=== PATIENT | female | born 1960 | race Two or more races ===

== ENCOUNTER 2020-07-17 08:53 | Outpatient (AMBR) | payer MEDICARE, MEDICAID, SELFPAY ==
--- NOTE | 2020-07-02 09:14 | PT.OIERPT ---
PT OP Initial Eval Patient Information Visit Reasons: RIGHT SHOULDER PAIN Medical Diagnosis: R shoulder pain Treatment Dx #1: same Start of Care: 07/02/20 Date of Onset: 3 weeks ago Initial Assessment Subjective Pt is 60 yr old female here with her sister with whom she lives for R shoulder pain insidious onset x3 weeks. Pt reports pain with dressing, reaching back behind to fasten bra and so her sister helps her. Pt has difficulty lifting things due to pain. PMH: R knee sx meniscus, hypothyroidism, allegies Imaging: with provider Pt goal: to get rid of the shoulder pain so she can dress without pain Objective R shoulder AROM: Strength: FF: 120 deg with pain 3/5 Abd: 100 deg 3/5 Erot: 78 deg 3/5 HBB: R flank with pain Special tests: Paula Mcfadden: postiive Drop arm: negative Painful arc: positive Burgess's: negative Full can: positive TTP: R long head of biceps moderate Assessment Pt presentation consistent with R shoulder impingement with positive impingement testing and shoulder weakness. Pt has pain with resistance into all shoulder planes of motion and TTP over long head of biceps tendon. Pt requires skilled therapy in order to decrease pain and improve strength and ROM and has fair rehab potential. Short Term and Senior Care Goals 1. Ind with HEP 2. Improved AROM of R shoulder to 135 deg FF, 125 deg abduction and 90 deg ER, Improved HBB ROM to L3 3. Improved strength to 4-/5 grossly 4. Pt will reach OH x10 with <=4/10 pain Treatment Plan 1. Manual therapy 2. Therex 3. Modalities as indicated, moist heat pack, ice, electrical stimulation, Frequency and Duration 2x a week for 8 weeks Certification Dates: 07/02/20 to 10/02/20 Office Procedures PT Procedures PT Date of Service: 07/02/20 OP PT Eval Mod Complex 30 minutes: Yes
--- NOTE | 2020-07-04 14:23 | PTNOTE_ITS ---
PT Outpatient Daily Note Date of Service: 07/04/20 OP Daily Note Visit Reasons: RIGHT SHOULDER PAIN Outpatient Physical Therapy Treatment Date: 07/04/20 Subjective: Same as time of evaluation. She points to the R long head biceps as site of pain Objective: See F/S for therex MT: STM long hd biceps with graston x10' Assessment: Pt has pain at first resistance into flexion over the long head of biceps and mild TTP with manual therapy. Plan: Continue per POC Length of Time (minutes) of Treatment: 30 Minutes Office Procedures PT Procedures PT Date of Service: 07/02/20 OP PT Eval Mod Complex 30 minutes: Yes PT Procedures PT Date of Service: 07/04/20 Therapeutic Exercise 15 minutes: Yes Manual Mold Yarn Supervisor 15 minutes: Yes
--- NOTE | 2020-07-08 21:17 | PT.ODAYNRPT ---
PT Outpatient Daily Note Date of Service: 07/08/20 OP Daily Note Visit Reasons: RIGHT SHOULDER PAIN Outpatient Physical Therapy Treatment Date: 07/08/20 Subjective: She points to the R long head biceps as site of pain Objective: See F/S for therex Assessment: Pt has pain at first resistance into flexion over the long head of biceps with impingement postitions Plan: Continue per POC Length of Time (minutes) of Treatment: 30 Minutes Office Procedures PT Procedures PT Date of Service: 07/08/20 Therapeutic Exercise 30 minutes: Yes PT Procedures PT Date of Service: 07/02/20 OP PT Eval Mod Complex 30 minutes: Yes PT Procedures PT Date of Service: 07/04/20 Therapeutic Exercise 15 minutes: Yes Manual Professor Of Environmental Science 15 minutes: Yes
--- NOTE | 2020-07-10 19:35 | PT.ODAYNRPT ---
PT Outpatient Daily Note Date of Service: 07/10/20 OP Daily Note Visit Reasons: RIGHT SHOULDER PAIN Outpatient Physical Therapy Treatment Date: 07/10/20 Subjective: She points to the R long head biceps as site of pain Objective: See F/S for therex Assessment: Pt has pain at first resistance into flexion over the long head of biceps with impingement postitions Plan: Continue per POC Length of Time (minutes) of Treatment: 30 Minutes Office Procedures PT Procedures PT Date of Service: 07/08/20 Therapeutic Exercise 30 minutes: Yes PT Procedures PT Date of Service: 07/10/20 Therapeutic Exercise 30 minutes: Yes PT Procedures PT Date of Service: 07/02/20 OP PT Eval Mod Complex 30 minutes: Yes PT Procedures PT Date of Service: 07/04/20 Therapeutic Exercise 15 minutes: Yes Manual Aluminum Pourer 15 minutes: Yes
--- NOTE | 2020-07-15 19:21 | PT.ODAYNRPT ---
PT Outpatient Daily Note Date of Service: 07/15/20 OP Daily Note Visit Reasons: RIGHT SHOULDER PAIN Outpatient Physical Therapy Treatment Date: 07/15/20 Subjective: She points to the R long head biceps as site of pain Objective: See F/S for therex Assessment: Pt has less pain at first resistance into flexion over the long head of biceps with impingement positions Plan: Continue per POC Length of Time (minutes) of Treatment: 30 Minutes Office Procedures PT Procedures PT Date of Service: 07/08/20 Therapeutic Exercise 30 minutes: Yes PT Procedures PT Date of Service: 07/10/20 Therapeutic Exercise 30 minutes: Yes PT Procedures PT Date of Service: 07/15/20 Therapeutic Exercise 30 minutes: Yes PT Procedures PT Date of Service: 07/02/20 OP PT Eval Mod Complex 30 minutes: Yes PT Procedures PT Date of Service: 07/04/20 Therapeutic Exercise 15 minutes: Yes Manual Community Mental Health Social Worker 15 minutes: Yes
--- NOTE | 2020-07-17 19:28 | PT.ODAYNRPT ---
PT Outpatient Daily Note Date of Service: 07/17/20 OP Daily Note Visit Reasons: RIGHT SHOULDER PAIN Outpatient Physical Therapy Treatment Date: 07/17/20 Subjective: She points to the R posterior deltoid as site of pain Objective: See F/S for therex MT: STM posterior deltoid x7' Assessment: Pt has less pain at first resistance into flexion over the long head of biceps with impingement positions . Moderate TTP of posterior deltoid. Plan: Continue per POC Length of Time (minutes) of Treatment: 30 Minutes Office Procedures PT Procedures PT Date of Service: 07/08/20 Therapeutic Exercise 30 minutes: Yes PT Procedures PT Date of Service: 07/10/20 Therapeutic Exercise 30 minutes: Yes PT Procedures PT Date of Service: 07/15/20 Therapeutic Exercise 30 minutes: Yes PT Procedures PT Date of Service: 07/17/20 Therapeutic Exercise 30 minutes: Yes PT Procedures PT Date of Service: 07/02/20 OP PT Eval Mod Complex 30 minutes: Yes PT Procedures PT Date of Service: 07/04/20 Therapeutic Exercise 15 minutes: Yes Manual Primary Special Educator 15 minutes: Yes
== END 2020-07-22 23:59 | disposition home or self-care (01) ==
PROVIDERS: PCP Physician Assistant; Referring Provider Physician Assistant; Visit Provider Physician Assistant
DX: M25.511 Pain in right shoulder (principal)
CPT/HCPCS: 97110; 97140; 97162

== ENCOUNTER 2020-08-01 09:53 | Outpatient (AMBR) | payer MEDICARE, MEDICAID, SELFPAY ==
--- NOTE | 2020-07-25 10:09 | PT.ODAYNRPT ---
PT Outpatient Daily Note Date of Service: 07/23/20 OP Daily Note Visit Reasons: RIGHT SHOULDER PAIN Outpatient Physical Therapy Treatment Date: 07/23/20 Subjective: The shoulder has been less painful lately with reaching up, thinks therapy is helping. Objective: See f/S for therex Assessment: Good response to AAROM therex to reduce shoulder pain and improve ROM to about 130 deg FF. Plan: Continue per POC Length of Time (minutes) of Treatment: 30 Minutes Office Procedures PT Procedures PT Date of Service: 07/23/20 Therapeutic Exercise 30 minutes: Yes
--- NOTE | 2020-07-25 10:39 | PT.ODAYNRPT ---
PT Outpatient Daily Note Date of Service: 07/25/20 OP Daily Note Visit Reasons: RIGHT SHOULDER PAIN Outpatient Physical Therapy Treatment Date: 07/25/20 Subjective: The shoulder has been less painful lately with reaching up, thinks therapy is helping. But she points to the R bicep as site of pain when she lifts shoulder. Objective: See f/S for therex MT: STM R long head biceps tendon x7' with Graston Assessment: Pt can actively reach up Plan: Continue per POC Office Procedures PT Procedures PT Date of Service: 07/23/20 Therapeutic Exercise 30 minutes: Yes
--- NOTE | 2020-07-25 12:56 | PTNOTE_ITS ---
PT OP Progress/Discharge Note Date of Service: 07/25/20 Progress Note/DC Note Progress Note/Discharge Note: Progress Note Patient Information Visit Reasons: RIGHT SHOULDER PAIN Service Continue Service or Discharge: Continue Service Discharge Date: 07/25/20 Status Subjective: The shoulder has been less painful lately with reaching up, thinks therapy is helping. But she points to the R bicep as site of pain when she lifts shoulder. Objective: See f/S for therex MT: STM R long head biceps tendon x7' with Graston R shoulder AROM: Strength: FF: 140 deg 3+/5 Abd: 120 deg with pain over long head of biceps 3+/5 Erot: 70 deg 3+/5 Assessment: Pt has attended the evaluation and 8 Rx visits with good response to AAROM therex to reduce shoulder pain and improve ROM to about 140 deg FF. She h as pain over the R biceps with FF consistent with impingement. Pt would benefit from continued therapy in order to decrease pain with OH reaching. Plan: Continue per POC Office Procedures PT Procedures PT Date of Service: 07/23/20 Therapeutic Exercise 30 minutes: Yes PT Procedures PT Date of Service: 07/25/20 Therapeutic Exercise 30 minutes: Yes
--- NOTE | 2020-07-30 13:42 | PT.ODAYNRPT ---
PT Outpatient Daily Note Date of Service: 07/30/20 OP Daily Note Visit Reasons: RIGHT SHOULDER PAIN Outpatient Physical Therapy Treatment Date: 07/30/20 Subjective: The shoulder has been less painful lately with reaching up, thinks therapy is helping. But she points to the R bicep as site of pain when she lifts shoulder. Objective: See f/S for therex MT: STM R long head biceps tendon x7' with Graston Assessment: She has pain over the R biceps with FF consistent with impingement. Pt would benefit from continued therapy in order to decrease pain with OH reaching. Plan: Continue per POC Length of Time (minutes) of Treatment: 30 Minutes Office Procedures PT Procedures PT Date of Service: 07/23/20 Therapeutic Exercise 30 minutes: Yes PT Procedures PT Date of Service: 07/25/20 Therapeutic Exercise 30 minutes: Yes PT Procedures PT Date of Service: 07/30/20 Therapeutic Exercise 30 minutes: Yes
--- NOTE | 2020-08-01 13:11 | PT.ODAYNRPT ---
PT Outpatient Daily Note Date of Service: 08/01/20 OP Daily Note Visit Reasons: RIGHT SHOULDER PAIN Outpatient Physical Therapy Treatment Date: 08/01/20 Subjective: The shoulder has been less painful lately with reaching up, thinks therapy is helping. But she points to the R bicep as site of pain when she lifts shoulder. Objective: See f/S for therex MT: STM R long head biceps tendon x7' with Graston Assessment: She has pain over the R biceps with FF consistent with impingement. Pt would benefit from continued therapy in order to decrease pain with OH reaching. Plan: Continue per POC Length of Time (minutes) of Treatment: 30 Minutes Office Procedures PT Procedures PT Date of Service: 07/23/20 Therapeutic Exercise 30 minutes: Yes PT Procedures PT Date of Service: 07/25/20 Therapeutic Exercise 30 minutes: Yes PT Procedures PT Date of Service: 07/30/20 Therapeutic Exercise 30 minutes: Yes PT Procedures PT Date of Service: 08/01/20 Therapeutic Exercise 30 minutes: Yes
== END 2020-08-21 23:59 | disposition home or self-care (01) ==
PROVIDERS: PCP Physician Assistant; Referring Provider Physician Assistant; Visit Provider Physician Assistant
DX: M25.511 Pain in right shoulder (principal)
CPT/HCPCS: 97110

== ENCOUNTER → 2024-02-07 | Outpatient (CLI) | payer MEDICARE, MEDICAID, SELFPAY ==
[2024-02-07 10:51] LABS: Vitamin D 25 Hydroxy Total 40.3 ng/mL (7.3-40.2)
[2024-02-07 11:10] LABS: Alanine Aminotransferase 23 U/L (10-49); Albumin, Serum 4.6 gm/dL (3.4-4.8); Albumin/Globulin Ratio 2.2 (1.2-2.2); Alkaline Phosphatase 147 U/L (46-116); Anion Gap 10 (7-16); Aspartate Amino Transferase 19 U/L (0-34); BUN/Creatinine Ratio 14 Ratio (12-20); Bilirubin,Total 0.5 mg/dL (0.3-1.2); Blood Urea Nitrogen 15 mg/dL (9-23); Calcium 9.8 mg/dL (8.3-10.6); Calcium (Corrected) 9.8 mg/dL (8.5-10.1); Carbon Dioxide 26.7 mMol/L (20.0-31.0); Chloride 106 mMol/L (98-107); Creatinine (Component) 1.1 mg/dL (0.6-1.3); Globulin 2.1 gm/dL (2.3-3.5); Glucose 120 mg/dL (74-106); Osmolality,Calculated 286 (275-295); Potassium 4.2 mMol/L (3.4-5.1); Sodium 143 mMol/L (136-145); Total Protein 6.7 gm/dL (5.7-8.2); eGFR 56 See Note
== END | disposition home or self-care (01) ==
LOC: COPL 08:56
PROVIDERS: PCP Physician Assistant; Referring Provider Internal Medicine; Visit Provider Internal Medicine
DX: D80.1 Nonfamilial hypogammaglobulinemia (principal); E03.9 Hypothyroidism, unspecified; E21.3 Hyperparathyroidism, unspecified; E66.01 Morbid (severe) obesity due to excess calories; F79 Unspecified intellectual disabilities; F89 Unspecified disorder of psychological development; I49.9 Cardiac arrhythmia, unspecified; J30.9 Allergic rhinitis, unspecified; M81.0 Age-related osteoporosis without current pathological fracture; N32.81 Overactive bladder; Z68.41 Body mass index [BMI] 40.0-44.9, adult; Z78.0 Asymptomatic menopausal state; Z79.899 Other long term (current) drug therapy; Z13.820 Encounter for screening for osteoporosis
CPT/HCPCS: 36415; 80053; 82306

== ENCOUNTER 2024-02-09 09:20 | Day surgery (SDC) | payer MEDICARE, MEDICAID, SELFPAY ==
[2024-02-08 10:57] VITALS: BMI 45.3
[2024-02-09] VITALS (10 sets, daily range): BP systolic 115–152; BP diastolic 70–105; PULSE 79–112; RESP 12–21; TEMP 36.5–36.7; O2SAT 94–97; BMI 43.0
[2024-02-09] MEDS: DiphenhydrAMINE INJ 50 MG/ML VIAL 25 MG IV (11:08)
[2024-02-09] MEDS: fentaNYL CIT INJ 50 mCg/ML AMP 2ML (ASD USE ONLY) IV (11:10)
[2024-02-09] MEDS: MIDAZOLAM INJ 1 MG/ML VIAL 2 ML (ASD USE ONLY) 2 MG IV (11:15)
== END 2024-02-09 12:20 | disposition home or self-care (01) ==
PROVIDERS: PCP Physician Assistant; Referring Provider Physician Assistant; Visit Provider Specialist
PROC: 0DBE8ZX Excision of Large Intestine, Via Natural or Artificial Opening Endoscopic, Diagnostic (ICD-10-PCS; CPT 45380; principal; 2024-02-09 10:45)
DX: K63.5 Polyp of colon (principal); Z86.0101 Personal history of adenomatous and serrated colon polyps; D12.5 Benign neoplasm of sigmoid colon; K64.9 Unspecified hemorrhoids
CPT/HCPCS: 45385; J1200; J2250; J3010

== ENCOUNTER → 2024-02-15 | Outpatient (CLI) | payer MEDICARE, MEDICAID, SELFPAY ==
--- NOTE | 2024-02-15 09:38 | EKG_ITS ---
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
== END | disposition home or self-care (01) ==
PROVIDERS: PCP Physician Assistant; Referring Provider Student in an Organized Health Care Education/Training Program; Visit Provider Student in an Organized Health Care Education/Training Program
DX: Z01.818 Encounter for other preprocedural examination (principal); H25.811 Combined forms of age-related cataract, right eye
CPT/HCPCS: 93005

== ENCOUNTER → 2024-07-24 | Outpatient (CLI) | payer MEDICARE, MEDICAID, SELFPAY ==
[2024-07-24 10:22] LABS: Basophils % (Auto) 1 % (0-2.5); Eosinophils # (Auto) 0.2 Thou/mm3 (0.0-0.5); Eosinophils % (Auto) 5 % (0-10); Hematocrit 42.1 % (36.0-46.0); Hemoglobin 13.9 g/dL (12.0-16.0); Immature Granulocytes % (Auto) 0 % (0-0); Immature Granulocytes Auto 0.01 Thou/mm3 (0.00-0.00); Lymphocytes # (Auto) 1.3 Thou/mm3 (1.0-4.8); Lymphocytes % (Auto) 26 % (10-50); Mean Corpuscular Hemoglobin 29.2 pg (25.0-35.0); Mean Corpuscular Volume 88 fL (80-100); Monocytes # (Auto) 0.3 Thou/mm3 (0.0-0.8); Monocytes % (Auto) 7 % (0-12); Neutrophils # (Auto) 3.1 Thou/mm3 (1.8-7.7); Neutrophils % (Auto) 62 % (37-80); Nucleated Red Blood Cell % 0 /100 WBC (0); Platelet Count 176 Thou/mm3 (140-440); RDW Standard Deviation 41.8 fL (36.4-46.3); Red Blood Count 4.76 Miln/mm3 (4.00-5.20)
[2024-07-24 10:38] LABS: Alanine Aminotransferase 19 U/L (10-49); Albumin, Serum 4.4 gm/dL (3.4-4.8); Albumin/Globulin Ratio 2.1 (1.2-2.2); Alkaline Phosphatase 137 U/L (46-116); Anion Gap 12 (7-16); Aspartate Amino Transferase 26 U/L (0-34); BUN/Creatinine Ratio 18 Ratio (12-20); Bilirubin,Total 0.5 mg/dL (0.3-1.2); Blood Urea Nitrogen 16 mg/dL (9-23); Calcium 9.1 mg/dL (8.3-10.6); Calcium (Corrected) 9.1 mg/dL (8.5-10.1); Carbon Dioxide 24.2 mMol/L (20.0-31.0); Cardiac Risk Estimate 4.8 RATIO (3.7-5.6); Chloride 109 mMol/L (98-107); Cholesterol 163 mg/dL (132-200); Creatinine (Component) 0.9 mg/dL (0.6-1.3); Globulin 2.1 gm/dL (2.3-3.5); Glucose 119 mg/dL (74-106); HDL Cholesterol 34 mg/dL (40-60); LDL Cholesterol,Calculated 104 mg/dL (0-130); Osmolality,Calculated 290 (275-295); Potassium 4.2 mMol/L (3.4-5.1); Sodium 145 mMol/L (136-145); Thyroid Stimulating Hormone 3.98 uIU/mL (0.55-4.78); Total Protein 6.5 gm/dL (5.7-8.2); Triglycerides 126 mg/dL (30-150); eGFR > 60 See Note
[2024-07-24 11:07] LABS: Glucose Estimated Average 117 mg/dL (80-131); Hemoglobin A1C 5.7 % Hgb (4.8-6.0)
== END | disposition home or self-care (01) ==
LOC: COPL 08:57
PROVIDERS: PCP Physician Assistant; Referring Provider Physician Assistant; Visit Provider Physician Assistant
DX: Z00.00 Encounter for general adult medical examination without abnormal findings (principal); M81.0 Age-related osteoporosis without current pathological fracture; E03.9 Hypothyroidism, unspecified
CPT/HCPCS: 36415; 80053; 80061; 83036; 84443; 85025

== ENCOUNTER → 2024-08-22 | Outpatient (CLI) | payer MEDICARE, MEDICAID, SELFPAY ==
--- NOTE | 2024-08-22 11:15 | XR_ITS ---
Examination: Screening digital mammography, bilateral Computer aided detection 3-D breast Tomosynthesis, bilateral Date and time of exam: August 22, 2024 1054 hours Compared to mammograms dating to April 11, 2019 Indication: Screening Technique: Nonmagnified MLO, CC views of the breasts to been obtained, reconstructed from 3-D Tomosynthesis images. R2 computer aided detection program utilized for evaluation of suspicious masses and/or abnormal calcifications. 3-D Tomosynthesis images obtained. Findings: Scattered areas of fibroglandular density. Benign calcifications. 12 mm focal asymmetry upper outer left breast Impression: BI-RADS Category 0: Incomplete: Need additional imaging evaluation Recommend follow-up spot tomographic views of 12 mm focal asymmetry upper outer left breast as well as left breast sonography to complete the workup.
== END | disposition home or self-care (01) ==
PROVIDERS: Referring Provider Physician Assistant; Visit Provider Physician Assistant
DX: Z12.31 Encounter for screening mammogram for malignant neoplasm of breast (principal); N64.89 Other specified disorders of breast
CPT/HCPCS: 77063; 77067

== ENCOUNTER → 2024-09-21 | Outpatient (BNVA) | payer MEDICARE, MEDICAID, SELFPAY | END | disposition home or self-care (01) | PROVIDERS: PCP Physician Assistant; Referring Provider Physician Assistant; Visit Provider Urology | DX: N39.0 Urinary tract infection, site not specified (principal); R32 Unspecified urinary incontinence; E66.01 Morbid (severe) obesity due to excess calories; Z71.3 Dietary counseling and surveillance; Z68.41 Body mass index [BMI] 40.0-44.9, adult | CPT/HCPCS: 51701; 81003; 99212; 99213; G0463 ==

== ENCOUNTER 2024-11-08 09:40 | Day surgery (SDC) | payer MEDICARE, MEDICAID, SELFPAY ==
[2024-11-07 09:33] VITALS: BMI 44.1
--- NOTE | 2024-11-07 09:35 | EKG_ITS ---
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
[2024-11-07 11:49] LABS: Alanine Aminotransferase 23 U/L (10-49); Albumin, Serum 4.4 gm/dL (3.4-4.8); Albumin/Globulin Ratio 1.8 (1.2-2.2); Alkaline Phosphatase 118 U/L (46-116); Anion Gap 8 (7-16); Aspartate Amino Transferase 29 U/L (0-34); BUN/Creatinine Ratio 11 Ratio (12-20); Bilirubin,Total 0.5 mg/dL (0.3-1.2); Blood Urea Nitrogen 11 mg/dL (9-23); Calcium 9.6 mg/dL (8.3-10.6); Calcium (Corrected) 9.6 mg/dL (8.5-10.1); Carbon Dioxide 28.4 mMol/L (20.0-31.0); Chloride 108 mMol/L (98-107); Creatinine (Component) 1.0 mg/dL (0.6-1.3); Estimated Creatinine Clearance 63.8 mL/min (>60); Globulin 2.4 gm/dL (2.3-3.5); Glucose 112 mg/dL (74-106); Osmolality,Calculated 287 (275-295); Potassium 4.2 mMol/L (3.4-5.1); Sodium 144 mMol/L (136-145); Total Protein 6.8 gm/dL (5.7-8.2); eGFR > 60 See Note
--- NOTE | 2024-11-07 14:32 | SUR.PREOP ---
Cardiac records reviewed with Dr Galloway.
--- NOTE | 2024-11-07 14:32 | SUR.PREOP ---
Voice message left with Pt's sister to bring pt tomorrow at 1000.
[2024-11-08] VITALS (8 sets, daily range): BP systolic 106–123; BP diastolic 62–82; PULSE 64–76; RESP 14–21; TEMP 36.4–36.9; O2SAT 95–100; BMI 43.7
--- NOTE | 2024-11-08 12:32 | PD.SUROPNT ---
Date of Procedure 11/08/24 Pre Op Diagnosis Urethral stenosis, difficulty in urinating, Post Op Diagnosis Urethral stenosis, trabeculated bladder Procedure Cystoscopic examination and urethral dilation Findings Urethral stenosis trabeculated bladder Procedure Description Indication for procedure this is a 64-year-old female. She was seen by me on consultation she had difficulty in urinating she has a history of urethral stenosis in the past she has slow urinary stream she has morbid obesity she was recommended above procedure procedure and complications were discussed with the patient in great detail informed consent is obtained Patient was brought to the operating room in a satisfactory condition after appropriate premedication she was appropriately identified by surgeon and operating room staff site scope and indications of the procedure were reconfirmed with the patient informed consent is obtained The patient received 160 mg Gentamicin Iv pre-op prophylaxis. Informed consent was obtained for the procedure. General anesthesia was given uneventfully patient was positioned in the dorsolithotomy position the patient was prepped in a sterile manner. Local anesthetic was placed in the urethra. Cystoscopy was then performed. The urethra had no intrinsic lesions. Examination of the bladder revealed no evidence of cancerous lesions, papillary or polyp type, lesions or stones. Both ureters were putting out clear urine. The urethra had mid urethral stenosis and the urethra was dilated up to 30Fr with dilators. The bladder was completely drained and the scope was removed. The patient tolerated the procedure well. Post-op instructions were given. The patient is to call the office should any problems occur. Pathology / specimen None Estimated Blood Loss 0.2 Condition Stable Disposition PACU Surgeon Maura Parker MD Surgical Staff Operation Date: 11/08/24 12:00 <No data on this case meets the specified criteria>
--- NOTE | 2024-11-08 13:12 | SUR.PHASEI ---
1218: Pt received in Pacu via gurney. Report from Eldon KIDD and [facility] TRAN. Pt obtunded. Is arousable with eye opening then drifts back to sleep. Resp even, unlabored. VS stable. No c/o pain. 1245: Pt resting with no complaints voiced. Resp even, unlabored. VS stable.
--- NOTE | 2024-11-08 15:58 | SUR.PHASEII ---
1317: Pt more awake, alert. VS stable. Denies pain. Sitting up tolerating po fluids with no difficulty swallowing and no n/v. 1338: Pt fully awake, oriented x3. VS stable. Denies pain. Pt had voided pale pink in brief. Was dressed and assisted to transport chair. Ambulation steady. Pt and sister stated understanding of discharge instructions. Pt discharged from Pacu in stable condition.
== END 2024-11-08 13:38 | disposition home or self-care (01) ==
PROVIDERS: Anesthesiology; PCP Physician Assistant; Referring Provider Urology; Visit Provider Urology
PROC: 0T7B8ZZ Dilation of Bladder, Via Natural or Artificial Opening Endoscopic (ICD-10-PCS; CPT 52281; principal; 2024-11-08 11:45)
DX: N35.82 Other urethral stricture, female (principal); N32.89 Other specified disorders of bladder; Z01.810 Encounter for preprocedural cardiovascular examination; E66.01 Morbid (severe) obesity due to excess calories; Z68.41 Body mass index [BMI] 40.0-44.9, adult
CPT/HCPCS: 52281; 36415; 80053; 93005; A4217; A4649; J1100; J2405; J2704; J3010

== ENCOUNTER → 2024-11-13 | Outpatient (CLI) | payer MEDICARE, MEDICAID, SELFPAY ==
--- NOTE | 2024-11-13 10:00 | XR_ITS ---
Examination: Breast ultrasound, unilateral, left Date and time of exam: November 13, 2024 1002 hours INDICATIONS: Mammogram August 22, 2024 12 mm focal asymmetry upper outer left breast Technique: Real-time ortega scale ultrasonographic imaging performed left breast including all 4 quadrants as well as nipple retroareolar and axillary region. Findings: No cystic or solid mass IMPRESSION: BI-RADS Category 1: Negative study
--- NOTE | 2024-11-13 10:30 | XR_ITS ---
Examination: Diagnostic digital mammography, unilateral, left Computer aided detection 3-D breast Tomosynthesis, unilateral Date and time of exam: November 13, 2024, 10:00 AM INDICATIONS: Mammogram August 22, 2024 12 mm focal asymmetry upper outer left breast Technique: Nonmagnified MLO, CC views of the left breast have been obtained, reconstructed from 3-D Tomosynthesis images. R2 computer aided detection program utilized for evaluation of suspicious masses and/or abnormal calcifications. 3-D Tomosynthesis images obtained. Findings: Scattered areas of fibroglandular density. Benign calcifications. Focal asymmetry remains upper outer left breast Impression: BI-RADS category 3: Probably benign findings One additional 6 month left breast sonogram follow-up needed to document stability of focal asymmetry described above
== END | disposition home or self-care (01) ==
LOC: CDIM 09:37
PROVIDERS: Referring Provider Physician Assistant; Visit Provider Physician Assistant
DX: R92.332 Mammographic heterogeneous density, left breast (principal); N64.89 Other specified disorders of breast
CPT/HCPCS: 76641; 77061; 77065; G0279

== ENCOUNTER → 2025-02-12 | Outpatient (CLI) | payer MEDICARE, MEDICAID, SELFPAY ==
[2025-02-12 12:02] LABS: Alanine Aminotransferase 18 U/L (10-49); Albumin, Serum 4.4 gm/dL (3.4-4.8); Albumin/Globulin Ratio 1.6 (1.2-2.2); Alkaline Phosphatase 135 U/L (46-116); Anion Gap 9 (7-16); Aspartate Amino Transferase 27 U/L (0-34); BUN/Creatinine Ratio 14 Ratio (12-20); Bilirubin,Total 0.6 mg/dL (0.3-1.2); Blood Urea Nitrogen 14 mg/dL (9-23); Calcium 9.7 mg/dL (8.3-10.6); Calcium (Corrected) 9.7 mg/dL (8.5-10.1); Carbon Dioxide 29.7 mMol/L (20.0-31.0); Chloride 106 mMol/L (98-107); Creatinine (Component) 1.0 mg/dL (0.6-1.3); Globulin 2.8 gm/dL (2.3-3.5); Glucose 116 mg/dL (74-106); Osmolality,Calculated 290 (275-295); Potassium 4.3 mMol/L (3.4-5.1); Sodium 145 mMol/L (136-145); Total Protein 7.2 gm/dL (5.7-8.2); eGFR > 60 See Note
[2025-02-12 12:07] LABS: Vitamin D 25 Hydroxy Total 51.7 ng/mL (7.3-40.2)
== END | disposition home or self-care (01) ==
LOC: COPL 10:13
PROVIDERS: PCP Physician Assistant; Referring Provider Physician Assistant Medical; Visit Provider Physician Assistant Medical
DX: M81.0 Age-related osteoporosis without current pathological fracture (principal); Z79.899 Other long term (current) drug therapy
CPT/HCPCS: 36415; 80053; 82306